=== PATIENT | female | born 1950 | race Caucasian/White ===

== ENCOUNTER 2016-08-26 06:50 | Day surgery (SDC) | payer MEDICARE ==
[~2016-08-26 06:50] MED LIST: KETOROLAC TROMETHAMINE 0.45% 4 DROP/0.4 ML DROPERETTE OD PRN
[2016-08-26] MEDS: TETRACAINE HCL 0.5% OPH SOLN 2 ML OD PRN ×3 (07:09→08:06)
[2016-08-26] MEDS: TROPICAMIDE 1% OPH SOLN 3 ML OD PRN ×3 (07:10→07:39)
[2016-08-26] MEDS: CYCLOPENTOLATE 0.2%/PHENYLEPHRINE 1% OPH SOLN 2 ML OD PRN ×3 (07:11→07:40)
[2016-08-26] MEDS: BESIFLOXACIN HCL 0.6% OPH SUSP 5 ML BOTTLE OD PRN ×4 (07:12→08:35)
[2016-08-26] MEDS ORDERED: CHONDR SU A NA/HYALUR INTRAOC KIT (SURGICARE) ONE (07:12)
[2016-08-26] MEDS ORDERED: LIDOCAINE 1% INJ-PF (10 MG/ML) 30 ML SDV ONE (07:12)
[2016-08-26] MEDS ORDERED: EPINEPHRINE INJ/PF 1 MG/1 ML AMPULE ONE (07:12)
[2016-08-26] MEDS ORDERED: ONDANSETRON HCL INJ/PF 4 MG/2 ML SDV ONE (07:36)
[2016-08-26] MEDS ORDERED: FENTANYL CITRATE INJ/PF 100 MCG/2 ML AMPUL ONE (07:36)
[2016-08-26] MEDS ORDERED: MIDAZOLAM 2 MG/2 ML INJ ONE (07:36)
--- NOTE | 2016-08-26 19:54 | [facility] OPERATIVE REPORT E ---
[facility] Operative Report NAME: EMELY FORD AGE: 66Y DATE OF SURGERY: 08/26/2016 ROOM: PREOPERATIVE DIAGNOSIS: CATARACT, RIGHT EYE. POSTOPERATIVE DIAGNOSIS: CATARACT, RIGHT EYE. OPERATION: Cataract extraction with Toric intraocular lens implant of the right eye. SURGEON: EDYTA MIRZA M.D. ANESTHESIA: Topical. PROCEDURE: After obtaining appropriate consent, the patient's right eye was prepped and draped in sterile fashion as well as the surgeon in a sterile manner and cataract surgery was started. First a paracentesis blade was used to make a small side-port incision. Viscoelastic was used to inflate the anterior chamber. Next a 2.4 mm incision was made with the paracentesis blade. A continuous capsulorrhexis incision was made using a cystotome and Utrata forceps. Following this hydrodissection was carried out to make the lens fully loose and mobile and it was rotated 90 degrees. Following this, a acfgtq-goc-drjccmu technique was used to phacoemulsify the lens with a CDE of 4.34. The remaining cortex was removed with irrigation/aspiration. Provisc was instilled into the capsular bag to inflate the bag. A SN6AT3, 12.5 diopter lens rotated to [address] was [address]. The remaining viscoelastic material was removed with irrigation/aspiration. Following this, a 10-0 nylon suture was used to close the incision and it was found to be watertight. Vigamox was instilled in the eye and a protective shield was placed over the eye. The patient returned to the postoperative recovery in stable condition. Prior to having the patient lie on the operating room table, a 0- and 180-degree access was marked with clear corneal marker. Prior to insertion of the lens, the 175-degree access was marked. The lens was aligned in the proper position. DICTATING PHYSICIAN: EDYTA MIRZA M.D. 5071M 1947 PHY#: [id number] 1936 ID: [id number] JOB#: [id number] ACCT: [id number] cc:EDYTA MIRZA M.D. >
--- NOTE | 2016-08-26 19:58 | DISCHARGE SUMMARY E ---
Discharge Summary NAME: EMELY FORD : 1950 AGE: 66Y ADMITTED: 08/26/2016 DISCHARGED: 08/26/2016 This is a 66-year-old female who underwent cataract extraction with Toric intraocular lens of the right eye. DIAGNOSIS: Cataract, right eye. She underwent surgery because she having trouble reading small print like medicine bottles. DISCHARGE INSTRUCTIONS: She is to be on a regular diet. No bending at her waist, no heavy lifting. She is to use Besivance, Ilevro, and Durezol at 3:00 p.m. and 8:00 p.m., and sleep with a rigid shield. I will see her for her one day postoperative tomorrow. DICTATING PHYSICIAN: EDYTA MIRZA M.D. 5071M 1950 PHY#: [id number] 1936 ID: [id number] JOB#: [id number] ACCT: [id number] cc:EDYTA MIRZA M.D. >
== END 2016-08-26 09:20 | disposition home or self-care (01) ==
LOC: SC 06:50
PROVIDERS: ATTEND Internal Medicine
PROC: 08RJ3JZ Replacement of Right Lens with Synthetic Substitute, Percutaneous Approach (ICD-10-PCS; principal; 2016-08-26 08:00)
DX: H25.13 Age-related nuclear cataract, bilateral (principal); I10 Essential (primary) hypertension; E11.9 Type 2 diabetes mellitus without complications; E07.9 Disorder of thyroid, unspecified; Z79.899 Other long term (current) drug therapy
CPT/HCPCS: 66984; V2787; J2250; J3490 ×2; A9270; J0171; J3010; J2405; 142

== ENCOUNTER 2016-09-23 08:45 | Day surgery (SDC) | payer MEDICARE ==
[2016-09-23] MEDS ORDERED: EPINEPHRINE INJ/PF 1 MG/1 ML AMPULE ONE (09:06)
[2016-09-23] MEDS ORDERED: CHONDR SU A NA/HYALUR INTRAOC KIT (SURGICARE) ONE (09:06)
[2016-09-23] MEDS ORDERED: LIDOCAINE 1% INJ-PF (10 MG/ML) 30 ML SDV ONE (09:06)
[2016-09-23] MEDS: TROPICAMIDE 1% OPH SOLN 3 ML OS PRN ×3 (09:23→09:40)
[2016-09-23] MEDS: CYCLOPENTOLATE 0.2%/PHENYLEPHRINE 1% OPH SOLN 2 ML OS PRN ×3 (09:23→09:40)
[2016-09-23] MEDS: KETOROLAC TROMETHAMINE 0.45% 4 DROP/0.4 ML DROPERETTE OS PRN ×2 (09:23→11:07)
[2016-09-23] MEDS: BESIFLOXACIN HCL 0.6% OPH SUSP 5 ML BOTTLE OS PRN ×4 (09:23→10:30)
[2016-09-23] MEDS: TETRACAINE HCL 0.5% OPH SOLN 2 ML OS PRN ×3 (09:23→10:06)
[2016-09-23] MEDS ORDERED: MIDAZOLAM 2 MG/2 ML INJ ONE ×2 (09:40)
--- NOTE | 2016-09-23 20:08 | DISCHARGE SUMMARY E ---
Discharge Summary NAME: EMELY FORD : 1950 AGE: 66Y ADMITTED: 09/23/2016 DISCHARGED: 09/23/2016 This is a 66-year-old female who underwent cataract extraction of the left eye. DIAGNOSIS: Cataract, left eye. She underwent surgery because she was having difficulty driving at night secondary to glare. DISCHARGE INSTRUCTIONS: She is to be on a regular diet. No bending at her waist, no heavy lifting. She is to use Besivance, Ilevro, and Durezol at 3:00 p.m. and 8:00 p.m., and sleep with a rigid shield. I will see her for her one day postoperative tomorrow. DICTATING PHYSICIAN: EDYTA MIRZA M.D. 5071M 2004 PHY#: [id number] 1945 ID: [id number] JOB#: [id number] ACCT: [id number] cc:EDYTA MIRZA M.D. >
--- NOTE | 2016-09-23 20:09 | [facility] OPERATIVE REPORT E ---
[facility] Operative Report NAME: EMELY FORD AGE: 66Y DATE OF SURGERY: 09/23/2016 ROOM: PREOPERATIVE DIAGNOSIS: CATARACT, LEFT EYE. POSTOPERATIVE DIAGNOSIS: CATARACT, LEFT EYE. OPERATION: Cataract extraction with intraocular lens implant of the left eye. SURGEON: EDYTA MIRZA M.D. ANESTHESIA: Topical. PROCEDURE: After obtaining appropriate consent, the patient's left eye was prepped and draped in sterile fashion as well as the surgeon in a sterile manner and cataract surgery was started. First a paracentesis blade was used to make a small side-port incision. Viscoelastic was used to inflate the anterior chamber. Next a 2.4 mm incision was made with the paracentesis blade. A continuous capsulorrhexis incision was made using a cystotome and Utrata forceps. Following this hydrodissection was carried out to make the lens fully loose and mobile and it was rotated 90 degrees. Following this, a jwpzjl-nin-taxemgf technique was used to phacoemulsify the lens with a CDE of 6.58. The remaining cortex was removed with irrigation/aspiration. Provisc was instilled into the capsular bag to inflate the bag. A SN60WF, 12.0 diopter lens was placed. The remaining viscoelastic material was removed with irrigation/aspiration. Following this, a 10-0 nylon suture was used to close the incision and it was found to be watertight. Vigamox was instilled in the eye and a protective shield was placed over the eye. The patient returned to the postoperative recovery in stable condition. DICTATING PHYSICIAN: EDYTA MIRZA M.D. 5071M 2002 PHY#: [id number] 1945 ID: [id number] JOB#: [id number] ACCT: [id number] cc:EDYTA MIRZA M.D. >
== END 2016-09-23 11:18 | disposition home or self-care (01) ==
LOC: SC 08:45
PROVIDERS: ATTEND Internal Medicine
PROC: 08RK3JZ Replacement of Left Lens with Synthetic Substitute, Percutaneous Approach (ICD-10-PCS; principal; 2016-09-23 10:00)
DX: H25.12 Age-related nuclear cataract, left eye (principal); Z96.1 Presence of intraocular lens; H04.123 Dry eye syndrome of bilateral lacrimal glands; I10 Essential (primary) hypertension; E11.9 Type 2 diabetes mellitus without complications; E07.9 Disorder of thyroid, unspecified; Z79.899 Other long term (current) drug therapy
CPT/HCPCS: 82962; 66984; V2632; J2250; J3490 ×2; A9270; J0171; 142